=== PATIENT | female | born 1985 | race African-American/Black ===

== ENCOUNTER 2020-01-02 13:12 | Emergency (ER) | payer MEDICAID ==
[~2020-01-02] VITALS: Ht 177.8 cm; Wt 112.5 kg
[2020-01-02 13:24] VITALS: BP 110/95
--- NOTE | 2020-01-02 13:30 | NUR ---
PT W/C ASSISTED TO BED 1.
--- NOTE | 2020-01-02 13:40 | NUR ---
34 YEAR OLD FEMALE COMPLAINS OF MECHANICAL FALL FROM STAIRS INTO BUSHES WHEN TRYING TO TAKE OUT THE TRASH. PT DENIES HITTING HEAD, OR LOC. PT DENIES N/V/D. PT STATES SHE STARTED TO HAVE SOME LOWER ABDOMINAL PAIN AFTER. PT AOX4, BREATHING EVEN AND UNLABORED, SKIN WARM AND DRY. BED IN LOWEST POSITION, LOCKED, BED RAIL UPX1. PMH - HEART ANEURISM, DM2, THYROID ALLERGIES - NKA
[2020-01-02] MEDS ORDERED: MORPHINE SULFATE 2 MG/ML SYR IM ONE (14:10)
--- NOTE | 2020-01-02 15:30 | NUR ---
pt alert and awake, breathing even and unlabored
--- NOTE | 2020-01-02 16:55 | NUR ---
Patient discharged with v/s stable. Written and verbal after care instructions about back pain given and explained. Patient alert, oriented and verbalized understanding of instructions. Ambulatory with steady gait. All questions addressed prior to discharge. ID band removed. Patient advised to follow up with PMD. Rx of norco, motrin given. Patient educated on indication of medication including possible reaction and side effects. Opportunity to ask questions provided and answered.
[2020-01-02 16:56] VITALS: BP 115/87
== END 2020-01-02 16:56 | disposition home or self-care (01) ==
LOC: MED 13:12
DX: M54.5 Low back pain (principal); R03.0 Elevated blood-pressure reading, without diagnosis of hypertension; R10.30 Lower abdominal pain, unspecified; E11.9 Type 2 diabetes mellitus without complications; E07.9 Disorder of thyroid, unspecified
CPT/HCPCS: 72192; 81025; 96372; 99284; J2270

== ENCOUNTER 2020-08-13 00:07 | Inpatient (IN) | payer OTHER, SELFPAY ==
[~2020-08-13] VITALS: Ht 177.8 cm; Wt 108.9 kg
[2020-08-13 00:10] VITALS: BP 111/76
[2020-08-13] MEDS ORDERED: NACL 0.9% 1,000 ML IV ONE (00:20)
[2020-08-13 01:26] LABS: BASOPHILS % (AUTO) 0.1 % (0.0-2.0); EOSINOPHILS % (AUTO) 0.2 % (0.0-4.0); HEMATOCRIT 45.3 % (36-48); HEMOGLOBIN 14.6 g/dL (12.0-16.0); LYMPHOCYTES # (AUTO) 1.5 K/uL (2.5-16.5); LYMPHOCYTES % (AUTO) 13.8 % (20.5-51.1); MEAN CORPUSCULAR HEMOGLOBIN 30 pg (27-31); MEAN CORPUSCULAR HGB CONC 32 g/dL (33-37); MEAN CORPUSCULAR VOLUME 93.5 fL (80-94); MONOCYTES # (AUTO) 0.4 K/uL (0.8-1.0); MONOCYTES % (AUTO) 3.7 % (1.7-9.3); NEUTROPHILS # (AUTO) 9.1 K/uL (1.8-7.7); NEUTROPHILS % (AUTO) 82.2 % (42.2-75.2); PLATELET COUNT (AUTO) 205 K/uL (140-450); RED BLOOD CELL COUNT(AUTO) 4.84 MIL/uL (4.20-5.40); RED CELL DISTRIBUTION WIDTH 12.8 % (11.6-13.7); WHITE BLOOD COUNT (AUTO) 11.1 K/uL (4.8-10.8)
[2020-08-13 01:42] LABS: ANION GAP 25.9 (8-16); CARBON DIOXIDE 13.4 mmol/L (21-32); CREATININE 0.7 mg/dL (0.6-1.3); POTASSIUM 4.3 mmol/L (3.5-5.1)
[2020-08-13 01:42] LABS: APPEARANCE,URINE CLEAR (CLEAR); BILIRUBIN,URINE NEGATIVE (NEGATIVE); BLOOD, URINE TRACE-I (NEGATIVE); COLOR,URINE YELLOW (YELLOW); LEUKOCYTE ESTERASE ,URINE NEGATIVE (NEGATIVE); NITRITE, URINE NEGATIVE (NEGATIVE); PH,URINE 5.5 (5.0-9.0); UGLUCOSE 3+ (NEGATIVE)
[2020-08-13 01:47] LABS: ALBUMIN 3.9 g/dL (3.4-5.0); BILIRUBIN,DIRECT 0.1 mg/dL (0.0-0.3); MAGNESIUM 1.7 mg/dL (1.8-2.4); TOTAL BILIRUBIN 0.2 mg/dL (0.0-1.0)
[2020-08-13 02:04] LABS: RBC,URINE 0-5 /HPF (0-5); WBC,URINE 0-5 /HPF (0-5)
[2020-08-13] MEDS ORDERED: INSULIN REGULAR, HUMAN 100 UNIT in NACL 0.9% 100 ML IV SCH ×4 (02:15→04:20)
[2020-08-13] MEDS ORDERED: DEXTROSE 50% 50 ML SYR IVP PRN ×2 (02:15→04:20)
[2020-08-13] MEDS ORDERED: POTASSIUM CHL 20 MEQ/NACL 0.9% 1,000 ML IV ONE (02:15)
[2020-08-13] MEDS: BLOOD GLUCOSE MONITORING 1 DEV DEV FS SCH ×18 (03:15→20:14)
[2020-08-13] MEDS ORDERED: DEXT 5% /NACL 0.9% 1,000 ML IV SCH (04:20)
[2020-08-13] MEDS ORDERED: ACETAMINOPHEN 325 MG TAB PO PRN (04:20)
[2020-08-13] MEDS ORDERED: HYDROmorphone 1 MG/ML AMP IVP PRN (04:20)
[2020-08-13] MEDS ORDERED: ONDANSETRON 4 MG/2 ML VIAL ONE (04:26)
[2020-08-13] MEDS: ONDANSETRON 4 MG/2 ML VIAL IVP PRN ×2 (04:46→12:47)
[2020-08-13 08:16] LABS: ANION GAP 13.9 (8-16); CARBON DIOXIDE 22.4 mmol/L (21-32); CREATININE 0.6 mg/dL (0.6-1.3); POTASSIUM 4.3 mmol/L (3.5-5.1)
[2020-08-13 08:20] LABS: MAGNESIUM 1.6 mg/dL (1.8-2.4); PHOSPHORUS 3.7 mg/dL (2.5-4.9)
[2020-08-13] MEDS: LEVOFLOXACIN 750 MG/D5W PREMIX 150 ML IV SCH (08:33)
[2020-08-13] MEDS: NACL 0.9% 1,000 ML IV SCH ×2 (09:25→14:20)
[2020-08-13 12:19] LABS: ANION GAP 15.5 (8-16); CARBON DIOXIDE 22.6 mmol/L (21-32); CREATININE 0.6 mg/dL (0.6-1.3); POTASSIUM 4.1 mmol/L (3.5-5.1)
[2020-08-13 12:29] LABS: MAGNESIUM 1.6 mg/dL (1.8-2.4); PHOSPHORUS 3.3 mg/dL (2.5-4.9)
[2020-08-13 14:30] VITALS: BP 95/60
[2020-08-13] MEDS ORDERED: INSULIN LISPRO SLIDING SCALE 100 UNITS/ML VIAL SUBQ PRN (15:00)
[2020-08-13] MEDS: INSULIN LISPRO 100 UNITS/ML VIAL SUBQ SCH (16:59)
[2020-08-13] MEDS ORDERED: LISI-486 PO (17:20)
[2020-08-13] MEDS ORDERED: PROP10TA28 PO (17:20)
[2020-08-13] MEDS ORDERED: INSU100I7 SQ (17:20)
[2020-08-13] MEDS ORDERED: INSU-1163 SQ (17:20)
[2020-08-13] MEDS ORDERED: METF1000 PO (17:20)
[2020-08-13 20:00] VITALS: BP 98/68
[2020-08-13] MEDS ORDERED: INSULIN LANTUS 100 UNITS/ML 10 ML VIAL SUBQ SCH (21:00)
[2020-08-14] MEDS: NACL 0.9% 1,000 ML IV SCH ×2 (02:01→10:19)
[2020-08-14] MEDS: LEVOFLOXACIN 750 MG/D5W PREMIX 150 ML IV SCH (05:07)
[2020-08-14] MEDS: PANTOPRAZOLE 40 MG INJ VIAL IVP SCH ×2 (05:14→05:22)
[2020-08-14 06:15] LABS: BASOPHILS % (AUTO) 0.3 % (0.0-2.0); EOSINOPHILS # (AUTO) 0.1 K/uL (0-0.4); HEMATOCRIT 36.9 % (36-48); HEMOGLOBIN 12.4 g/dL (12.0-16.0); LYMPHOCYTES # (AUTO) 2.3 K/uL (2.5-16.5); LYMPHOCYTES % (AUTO) 23.8 % (20.5-51.1); MEAN CORPUSCULAR HEMOGLOBIN 31 pg (27-31); MEAN CORPUSCULAR HGB CONC 34 g/dL (33-37); MEAN CORPUSCULAR VOLUME 91.4 fL (80-94); MONOCYTES # (AUTO) 0.7 K/uL (0.8-1.0); MONOCYTES % (AUTO) 6.9 % (1.7-9.3); NEUTROPHILS # (AUTO) 6.6 K/uL (1.8-7.7); PLATELET COUNT (AUTO) 176 K/uL (140-450); RED BLOOD CELL COUNT(AUTO) 4.04 MIL/uL (4.20-5.40); RED CELL DISTRIBUTION WIDTH 12.4 % (11.6-13.7); WHITE BLOOD COUNT (AUTO) 9.7 K/uL (4.8-10.8)
[2020-08-14 06:53] LABS: ALBUMIN 2.8 g/dL (3.4-5.0); ANION GAP 14.7 (8-16); CARBON DIOXIDE 22.2 mmol/L (21-32); CREATININE 0.6 mg/dL (0.6-1.3); MAGNESIUM 1.5 mg/dL (1.8-2.4); PHOSPHORUS 3.5 mg/dL (2.5-4.9); POTASSIUM 3.9 mmol/L (3.5-5.1); TOTAL BILIRUBIN 1.3 mg/dL (0.0-1.0)
[2020-08-14] MEDS: BLOOD GLUCOSE MONITORING 1 DEV DEV FS SCH (07:04)
[2020-08-14] MEDS ORDERED: MAG SULF 2000 MG/WATER PREMIX 50 ML IV ONE (08:08)
[2020-08-14] MEDS: INSULIN LISPRO 100 UNITS/ML VIAL SUBQ SCH (08:39)
[2020-08-14] MEDS ORDERED: ENOXAPARIN 40 MG/0.4 ML SYR SUBQ SCH (09:00)
[2020-08-14 10:58] VITALS: BP 97/58
== END 2020-08-14 12:05 | disposition home or self-care (01) | DRG 420 ==
LOC: MED 00:07 → MTU 04:19
PROVIDERS: ADMIT Internal Medicine; ATTEND Internal Medicine
DX: E11.10 Type 2 diabetes mellitus with ketoacidosis without coma (principal); E87.2 Acidosis; E66.01 Morbid (severe) obesity due to excess calories; E11.65 Type 2 diabetes mellitus with hyperglycemia; I10 Essential (primary) hypertension; F10.129 Alcohol abuse with intoxication, unspecified; Y90.9 Presence of alcohol in blood, level not specified; Z20.822 Contact with and (suspected) exposure to COVID-19; Z68.34 Body mass index [BMI] 34.0-34.9, adult
CPT/HCPCS: 36415; 80048; 80053; 80076; 81001; 81025; 82803; 82948; 83036; 83735; 84100; 85025; 87081; 96361; 96365; 96366; 96368; 99291; C9113; G0482; J1650; J1815; J1956; J2405; J3475; J7030